=== PATIENT | male | born 1970 | race Caucasian/White ===

== ENCOUNTER 2024-09-22 01:22 | Emergency (ER) | payer BC, SELFPAY ==
[2024-09-22 01:23] VITALS: BP 144/82; PULSE 82; RESP 17; TEMP 36.7; O2SAT 98; BMI 38.3
--- NOTE | 2024-09-22 01:56 | ED_ITS ---
HPI - Wound/Laceration General: Chief Complaint: Wound/Laceration Stated Complaint: head lac Time Seen by Provider: 09/22/24 01:55 History of Present Illness: Patient tripped over the dog and hit his head above his left eye on the table. Patient has laceration over his eyebrow he is on for sure if he got knocked out. Bleeding is controlled this time. No vision changes. Patient is on no anticoagulation. Related Data Allergies Allergy/AdvReac Type Severity Reaction Status Date / Time No Known Allergies Allergy Verified 09/22/24 01:34 Review of Systems General: Reports: 10 or more systems reviewed and unremarkable except in HPI and below Physical Exam Const: COMMON NORMALS: no acute distress, average body habitus, patient oriented x3, no limitations, healthy appearing, alert and well nourished HENMT: COMMON NORMALS: normocephalic, hearing grossly normal bilaterally, external ears normal, EAC's normal, TM's normal bilaterally, Normal external nose present, Normal nasal mucous membranes and turbinates present, moist oral mucous membranes and oropharynx normal; head/scalp not atraumatic (Stellate laceration above left eyebrow) HEAD & SCALP: normocephalic; not atraumatic (Stellate laceration above left eyebrow) NOSE: Normal external nose present and Normal nasal mucous membranes and turbinates present EXTERNAL EAR: Yes external ears normal EXTERNAL AUDITORY CANAL: EAC's normal TYMPANIC MEMBRANE: TM's normal bilaterally Eye: COMMON NORMALS: Equal, round and reactive pupils present, EOMs intact bilaterally, conjunctivae normal and no scleral icterus CONJUNCTIVA: Yes conjunctivae normal PUPIL: Yes Equal, round and reactive pupils present Neck/C-Spine: COMMON NORMALS: full ROM, no lymphadenopathy, supple, no meningeal signs, no JVD and Thyroid normal THYROID: Thyroid normal Chest: COMMONS NORMALS: normal inspection of the chest and normal palpation of entire chest wall Resp: COMMON NORMALS: normal respiratory effort, No retractions, No use of accessory muscles and clear to auscultation bilaterally AUSCULTATION: clear to auscultation bilaterally Cardio: COMMON NORMALS: no JVD, regular rate, regular rhythm, S1 normal heart sound present, S2 normal heart sound present, No gallops present (Cardio), No clicks present (Cardio), No murmurs present (Cardio) and No rub (Cardio) RATE: regular rate RHYTHM: regular rhythm HEART SOUNDS: S1 normal heart sound present and S2 normal heart sound present GI: COMMON NORMALS: Normal to inspection, nondistended, normoactive bowel sounds present, Soft to palpation, non-tender, No hepatosplenomegaly present and no masses PALPATION: Yes Soft to palpation and Yes No hepatosplenomegaly present Neuro: COMMON NORMALS: patient oriented x3 SENSORIUM/ORIENTATION: Yes alert MENINGEAL SIGNS: Yes no meningeal signs Procedures Laceration Laceration 1: Site: face Side (If applicable): left Size (cm): 5 Description: stellate Depth: simple, single layer Local Anesthetic: lidocaine 1% and with epi Amount of anesthesia used (mL): 3 Pre-repair: wound explored, deep structures intact and wound margins revised Skin layer closed with: nylon Size (cm): 6-0 Number of sutures: 11 Technique: simple, interrupted Course Vital Signs: Vital signs: Vital Signs Temperature 98.0 F 09/22/24 01:23 Pulse Rate 82 09/22/24 01:23 Respiratory Rate 17 09/22/24 01:23 Blood Pressure 144/82 09/22/24 01:23 Pulse Oximetry 98 09/22/24 01:23 Oxygen Delivery Me thod Room Air 09/22/24 01:23 MDM - Wound/Laceration Medical Decision Making 11 stitches were placed in patient's stellate lesion above his left eye without complication. Patient be discharged home he should have the sutures taken out in approximately 7 days. Medical Records I reviewed the patient's medical records. Lab Data I reviewed the patient's lab results. All radiology interpretation(s) finalized by discharge Discharge Plan Discharge Patient Disposition: Home Clinical Impression: Laceration Contusion of face Qualifiers: Encounter type: initial encounter Qualified Code(s): S00.83XA - Contusion of other part of head, initial encounter Condition: Stable Discharge Orders: Discharge ED (Routine); Ordered 09/22/24 Ordered By: Osmar Cheema Referrals: Dung Stevens MD [Primary Care Provider] - 1 week Patient Instructions: Laceration (ED), Facial Contusion (ED) Activity Restrictions/Additional Instructions: Please keep your laceration clean dry and intact. Change dressing as needed. Please follow-up with your physician in approximately 7 days for further evaluation and probable suture removal. Coding Level of Care Code ED Application Support Lead for Mague Charles
--- NOTE | 2024-09-22 02:25 | CTR_ITS ---
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 ; Additional info: Fall contusion laceration left eyebrow TECHNIQUE: Imaging protocol: Computed tomography of the head without contrast. Radiation optimization: All CT scans at this facility use at least one of these dose optimization techniques: automated exposure control; mA and/or kV adjustment per patient size (includes targeted exams where dose is matched to clinical indication); or iterative reconstruction. COMPARISON: No relevant prior studies available. RADIATION DOSE METRICS: Total DLP (mGy-cm): 1184.28 FINDINGS: Brain: Normal. No hemorrhage. Unremarkable white matter. No mass effect. Cerebral ventricles: No ventriculomegaly. Paranasal sinuses: Visualized sinuses are unremarkable. No fluid levels. Mastoid air cells: Visualized mastoid air cells are well aerated. Bones: Right occipital craniotomy noted Soft tissues: Laceration of the left forehead. CT/CT head wo con* [id number] IMPRESSION: No acute intracranial findings.
== END 2024-09-22 03:57 | disposition home or self-care (01) ==
PROVIDERS: Emergency Provider Emergency Medicine; PCP Family Medicine
DX: S01.81XA Laceration without foreign body of other part of head, initial encounter (principal); W01.0XXA Fall on same level from slipping, tripping and stumbling without subsequent striking against object, initial encounter
CPT/HCPCS: 12014; 70450; 99284